=== PATIENT | male | born 1955 | race Caucasian/White ===

== ENCOUNTER 2017-08-08 13:44 | Inpatient (IN) | payer OTHER ==
[~2017-08-08] VITALS: Ht 188 cm; Wt 133.7 kg
[~2017-08-08 13:44] MED LIST: ARTHROTEC 501 TABLET PO; BENICAR HCT 401 EACH PO; DILAUDID4 MG PO; FLEXERIL10 MG PO; TOPROL XL50 MG PO
[2017-08-08 14:03] LABS: HEMATOCRIT 46.9 % (38.0-50.0); HEMOGLOBIN 16.1 G/DL (12.5-16.6); MCHC 34.3 G/DL (30.0-36.0); MCV 90.2 FL (86-99); PLATELET COUNT 171 K/uL (156-360); RBC DIS.WIDTH-CV 13.2 % (11.8-14.6); RBC DIS.WIDTH-SD 43.8 % (39-53); WHITE BLOOD COUNT 5.7 K/uL (4.1-10.2)
[2017-08-08 14:15] LABS: CHLORIDE 101 mEq/L (99-109); POTASSIUM 4.2 mEq/L (3.7-5.4); SODIUM 135 mEq/L (136-147)
[2017-08-08 14:17] LABS: GLUCOSE 385 mg/dL (70-99)
[2017-08-08 14:21] LABS: CREATININE 0.9 mg/dL (0.6-1.3); GFR ESTIMATE (CALCULATED) > 59 mL/min/ (58.99-99999)
[2017-08-08 14:22] LABS: UREA NITROGEN (BUN) 12 mg/dL (9-23)
[2017-08-08] MEDS ORDERED: DIOVAN320 MG PO (15:15)
[2017-08-08 17:57] LABS: PTT 32.5 SEC (25-37)
[2017-08-08 18:14] LABS: CHLORIDE 102 mEq/L (99-109); POTASSIUM 4.1 mEq/L (3.7-5.4); SODIUM 136 mEq/L (136-147)
[2017-08-08 18:16] LABS: GLUCOSE 304 mg/dL (70-99)
[2017-08-08 18:19] LABS: HDL CHOLESTEROL 40 MG/DL (Desirable>=40); LDL CHOLESTEROL 133 mg/dL (Desirable<100); NON-HDL CHOLESTEROL 164 mg/dL (Desirable<160); TOTAL CHOLESTEROL 204 mg/dL (Desirable<200); TRIGLYCERIDES 154 MG/DL (Normal: <150)
[2017-08-08 18:20] LABS: CREATININE 0.8 mg/dL (0.6-1.3); GFR ESTIMATE (CALCULATED) > 59 mL/min/ (58.99-99999); UREA NITROGEN (BUN) 12 mg/dL (9-23)
[2017-08-08 21:30] VITALS: BP 177/90
[2017-08-09 03:27] VITALS: BP 188/91
[2017-08-09 07:57] VITALS: BP 156/73
[2017-08-09 10:29] LABS: HEMOGLOBIN A1c (GLYCOHEMOGLOB) 12.6 % (Below 5.7)
[2017-08-09 11:07] VITALS: BP 177/81
[2017-08-09 15:21] VITALS: BP 173/79
[2017-08-09 20:08] VITALS: BP 164/77
[2017-08-10 00:25] VITALS: BP 173/81
[2017-08-10 07:56] VITALS: BP 135/71
[2017-08-10 15:54] VITALS: BP 174/84
[2017-08-11 00:35] VITALS: BP 145/77
[2017-08-11 09:15] VITALS: BP 136/71
[2017-08-11 18:04] VITALS: BP 140/74
[2017-08-11] MEDS ORDERED: AMLODIPINE BESYL5 MG PO (19:33)
[2017-08-11] MEDS ORDERED: NOVOLOG 10100 UNITS/ SC (19:33)
[2017-08-11] MEDS ORDERED: PRAVASTATIN SOD40 MG PO (19:33)
[2017-08-11] MEDS ORDERED: METFORMIN HCL1000 MG PO (19:33)
[2017-08-11] MEDS ORDERED: ASPIR-LOW81 MG PO (19:33)
[2017-08-11] MEDS ORDERED: JARDIANCE10 MG PO (19:33)
[2017-08-11] MEDS ORDERED: ONE TOUCH VERI1 EACH MC (19:40)
[2017-08-11] MEDS ORDERED: ONE TOUCH LANC1 EACH MC (19:40)
[2017-08-11] MEDS ORDERED: ONE TOUCH DELI1 EAC2 MC (19:40)
[2017-08-11] MEDS ORDERED: ALCOHOL SWAB1 EACH TP (19:40)
[2017-08-11] MEDS ORDERED: ONE TOUCH VERI1 EAC6 MC (19:40)
== END 2017-08-11 21:15 | disposition home or self-care (01) | DRG 64 ==
LOC: EME 13:44 → 5SOUTH 17:00 → EDOF 17:00 → ENRESERV 17:21 → 5SOUTH 21:06
PROVIDERS: Internal Medicine
DX: I63.9 Cerebral infarction, unspecified (principal); I61.9 Nontraumatic intracerebral hemorrhage, unspecified; G93.6 Cerebral edema; E11.65 Type 2 diabetes mellitus with hyperglycemia; H53.461 Homonymous bilateral field defects, right side; I10 Essential (primary) hypertension; E78.5 Hyperlipidemia, unspecified; F40.240 Claustrophobia; E66.9 Obesity, unspecified; Z68.37 Body mass index [BMI] 37.0-37.9, adult; Z87.891 Personal history of nicotine dependence
CPT/HCPCS: 70450; 70551; 71045; 71046; 80048; 80048 91; 80061; 82948; 83036; 85027; 85610; 85730; 93005; 93306; 93880; 95819; 99281; 99285; J1650; J1815; J2405